=== PATIENT | male | born 1990 | race Caucasian/White ===

== ENCOUNTER 2022-10-20 11:00 | Emergency (ER) | payer OTHER, MEDICAID, SELFPAY ==
[2022-10-20 12:16] VITALS: BP 132/80; PULSE 77; RESP 18; TEMP 36.7; O2SAT 100
--- NOTE | 2022-10-20 12:58 | ED.URI ---
HPI - URI/Sore Throat General Chief Complaint: Upper Respiratory Infection Stated Complaint: + covid home test,sorethroat Time Seen by Provider: 10/20/22 12:53 Source: patient Mode of arrival: ambulatory Limitations: no limitations History of Present Illness HPI Narrative: Patient presents today complaining 4 day history of sore throat, rhinorrhea, fever, body aches. He tested positive for COVID-19 2 days ago. Currently rates his pain 3/10 and has been taking DayQuil, NyQuil, Tylenol, and ibuprofen with some relief. Related Data Home Medications Medication Instructions Recorded Confirmed No Home Medications 10/20/22 10/20/22 Allergies Allergy/AdvReac Type Severity Reaction Status Date / Time No Known Allergies Allergy Unknown Verified 10/20/22 12:08 Review of Systems Review of Systems: CONSTITUTIONAL: Denies body aches, chills, or sweats.+ Fever EYES: Denies visual changes, redness, or discharge. ENT: Denies congestion, or otalgia.+ sore throat, rhinorrhea CARDIOVASCULAR: Denies chest pain, palpitations, or edema. RESPIRATORY: Denies cough or dyspnea. GASTROINTESTINAL: Denies abdominal pain, nausea, vomiting, or diarrhea. GENITOURINARY: Denies dysuria or hematuria. SKIN: Denies rash, itching, or wounds. MUSCULOSKELETAL: Denies back pain, joint pain, or myalgia. NEUROLOGIC: Denies headache, numbness, tingling, or weakness. PSYCH: Denies depression or anxiety. PMFSH Social History Social History Smoking status: Smoker, status unknown Alcohol intake: never Comments At time of signature, I have reviewed and agree with nursing past medical, surgical, social and family history unless otherwise noted. Please see nursing chart for further information. There is no relevant family history pertinent to the presenting complaint Exam Narrative: GENERAL: Well-appearing, well-nourished, and in no acute distress. HEAD: Normocephalic, atraumatic. EYES: EOMI. No redness or drainage. Conjunctivae normal. ENT: Mucous membranes pink and moist. Nares clear. No rhinorrhea. TMs normal bilaterally. Throat erythematous with exudate. No edema. Uvula midline. NECK: Normal AROM. Supple. No lymphadenopathy. CHEST: No respiratory distress. Clear to auscultation. HEART: Regular rate and rhythm. No murmur appreciated. Normal peripheral pulses. EXTREMITIES: Normal range of motion. No edema. SKIN: Warm, dry, no rash. Capillary refill normal. Normal skin turgor. NEURO: No focal deficits. Alert and oriented x3. Gait steady. PSYCH: Normal affect. No signs of depression or anxiety. Course Course Level of Care: Express Care Visit Vital Signs Vital signs: Vital Signs Temperature 98.0 F 10/20/22 12:16 Pulse Rate 77 10/20/22 12:16 Respiratory Rate 18 10/20/22 12:16 Blood Pressure 132/80 10/20/22 12:16 Pulse Oximetry 100 10/20/22 12:16 Oxygen Delivery Room Air 10/20/22 12:16 Temperature 98.0 F 10/20/22 12:16 Pulse Rate 77 10/20/22 12:16 Respiratory Rate 18 10/20/22 12:16 Blood Pressure 132/80 10/20/22 12:16 Pulse Oximetry 100 10/20/22 12:16 Oxygen Delivery Room Air 10/20/22 12:16 Reviewed. Pt has been instructed to follow up with his PCP regarding his elevated blood pressure today. MDM - URI/Sore Throat Differential Diagnosis Differential diagnosis: Likely upper respiratory infection, viral infection, pharyngitis and other ( strep throat, COVID-19) Lab Data Attestation: I reviewed the patient's lab results. Labs: Strep Screen Presumptive Negative *(Reference Range: Negative)* Critical Care Time Critical Care Time Critical Care Time: No Discharge Plan Discharge Clinical Impression: COVID-19 Pharyngitis Qualifiers: Pharyngitis/tonsillitis etiology: unspecified etiology Qualified Code(s): J02.9 - Acute pharyngitis, unspecified [place]
== END 2022-10-20 13:08 | disposition home or self-care (01) ==
PROVIDERS: Emergency Provider Nurse Practitioner
DX: U07.1 COVID-19 (principal)
CPT/HCPCS: 87081; 87880; 99213; G0463